=== PATIENT | male | born 1965 | race Caucasian/White ===

== ENCOUNTER 2021-04-13 00:11 | Emergency (ER) | payer SELFPAY ==
[~2021-04-13] VITALS: Ht 170.2 cm; Wt 66.0 kg
[~2021-04-13 00:11] MED LIST: IBUP-2028 PO
[2021-04-13] MEDS ORDERED: ONDANSETRON 4MG ODT PO ONE (06:45)
[2021-04-13] MEDS ORDERED: HYDROCODONE/ACETAMINOPHEN 5/325MG TABLET PO ONE (06:45)
[2021-04-13] MEDS ORDERED: IBUP-2029 MT (10:20)
[2021-04-13 10:32] VITALS: BP 138/82
== END 2021-04-13 10:47 | disposition home or self-care (01) ==
LOC: ER 00:11
DX: S09.90XA Unspecified injury of head, initial encounter (principal); F10.129 Alcohol abuse with intoxication, unspecified; W18.30XA Fall on same level, unspecified, initial encounter; Y93.89 Activity, other specified; Y92.89 Other specified places as the place of occurrence of the external cause; Y99.8 Other external cause status; Y90.9 Presence of alcohol in blood, level not specified
CPT/HCPCS: 70450; 72192; 73502; 73552; 73700; 99285; Q0162

== ENCOUNTER 2022-07-09 09:29 | Emergency (ER) | payer MEDICAID ==
[~2022-07-09] VITALS: Ht 167.6 cm; Wt 74.0 kg
[~2022-07-09 09:29] MED LIST changes: +IBUP-2029 MT
[2022-07-09 09:42] VITALS: BP 141/123
[2022-07-09] MEDS ORDERED: IBUPROFEN 600MG TABLET PO ONE (11:30)
== END 2022-07-09 16:28 | disposition home or self-care (01) ==
LOC: EDBD 09:35 → ER 09:35
DX: S82.402A Unspecified fracture of shaft of left fibula, initial encounter for closed fracture (principal); W18.40XA Slipping, tripping and stumbling without falling, unspecified, initial encounter; Y93.01 Activity, walking, marching and hiking; Y92.89 Other specified places as the place of occurrence of the external cause; Y99.8 Other external cause status
CPT/HCPCS: 73560; 73610; 99284

== ENCOUNTER 2022-07-17 22:41 | Emergency (ER) | payer MEDICAID ==
[~2022-07-17] VITALS: Ht 170.2 cm; Wt 59.0 kg
[2022-07-17 22:47] VITALS: BP 137/86
[2022-07-17] MEDS ORDERED: IBUPROFEN 600MG TABLET PO ONE (23:00)
== END 2022-07-18 07:25 | disposition home or self-care (01) ==
LOC: ER 22:45
DX: S82.492A Other fracture of shaft of left fibula, initial encounter for closed fracture (principal); W01.0XXA Fall on same level from slipping, tripping and stumbling without subsequent striking against object, initial encounter; Y93.89 Activity, other specified; Y92.488 Other paved roadways as the place of occurrence of the external cause
CPT/HCPCS: 29505; 73560; 73590; 73610; 73630; 73700; 99284

== ENCOUNTER 2022-08-20 16:17 | Emergency (ER) | payer MEDICAID ==
[~2022-08-20] VITALS: Ht 165.1 cm; Wt 70.0 kg
[2022-08-20 16:19] VITALS: BP 131/77
[2022-08-20] MEDS: IBUPROFEN 600MG TABLET PO ONE (22:18)
[2022-08-20] MEDS ORDERED: IBUP-2029 MT (22:19)
== END 2022-08-20 23:23 | disposition home or self-care (01) ==
LOC: ER 16:17
DX: S93.402A Sprain of unspecified ligament of left ankle, initial encounter (principal); W01.0XXA Fall on same level from slipping, tripping and stumbling without subsequent striking against object, initial encounter; Y93.89 Activity, other specified; Y92.89 Other specified places as the place of occurrence of the external cause; Y99.8 Other external cause status
CPT/HCPCS: 73562; 73610; 99284

== ENCOUNTER 2025-07-04 14:37 | Inpatient (IN) | payer MEDICAID ==
[~2025-07-04] VITALS: Ht 165.1 cm; Wt 78.0 kg
[~2025-07-04 14:37] MED LIST changes: +CHLO25CA10 PO; +FOLI-43 MT; -IBUP-2028 PO; -IBUP-2029 MT; +MULT-1146 MT; +THIA50TA12 MT
[2025-07-04 14:45] VITALS: O2SAT 98
[2025-07-04] MEDS: PANTOPRAZOLE 80 MG in SODIUM CHLORIDE 0.9% 100 ML IV ONE (15:56)
[2025-07-04] MEDS: SODIUM CHLORIDE 0.9% 1,000 ML IV ONE (15:56)
[2025-07-04] MEDS: CEFTRIAXONE 1GM/50ML 50 ML IV ONE (15:56)
[2025-07-04] MEDS: METOCLOPRAMIDE HCL 10MG/2ML VIAL IV ONE (15:56)
[2025-07-04 16:00] LABS: BASOPHILS % 0.6 % (0.0-2.0); EOSINOPHILS % 0.1 % (0.0-5.0); HEMATOCRIT. 35.2 % (42.0-52.0); HEMOGLOBIN. 11.7 g/dL (14.0-18.0); LYMPHOCYTES % 8.4 % (20.0-50.0); MEAN PLATELET VOLUME 9.2 fl (7.4-10.4); MONOCYTES % 11.1 % (2.0-8.0); NEUTROPHILS % 79.8 % (40.0-76.0); PLATELET 67 x1000/uL (130-400); RED BLOOD CELL COUNT 3.37 mill/uL (4.7-6.1); RED CELL DISTRIBUTION WIDTH 14.9 % (11.6-14.6)
[2025-07-04 16:13] LABS: INR 1.3
[2025-07-04 16:16] LABS: CREATININE 0.4 mg/dL (0.6-1.3)
[2025-07-04 16:17] LABS: TROPONIN I HIGH SENSITIVITY 4 ng/L (3.0-53); UREA NITROGEN BLOOD 10 mg/dL (9-23)
[2025-07-04 16:18] LABS: ASPARTATE AMINOTRANSFERASE 228 IU/L (<34)
[2025-07-04 16:19] LABS: BILIRUBIN DIRECT 2.4 mg/dL (<=3.0); BILIRUBIN TOTAL 3.5 mg/dL (0.1-1.0); PROTEIN TOTAL 7.2 g/dL (6.0-8.3)
[2025-07-04] MEDS ORDERED: DOCUSATE SODIUM 100MG CAPSULE PO PRN (20:00)
[2025-07-04] MEDS ORDERED: PHENOBARBITAL 60MG TABLET PO PRN (20:00)
[2025-07-04] MEDS ORDERED: IPRATROPIUM/ALBUTEROL 0.5-3(2.5)MG/3ML NEB HHN PRN (20:00)
[2025-07-04] MEDS ORDERED: CLONIDINE 0.1MG TABLET PO PRN (20:00)
[2025-07-04] MEDS ORDERED: MAGNESIUM/ALUMINUM HYDROXIDE/SIMETHICONE 30ML UDC PO PRN (20:00)
[2025-07-04] MEDS ORDERED: PHENOBARBITAL 30 MG TABLET PO PRN ×2 (20:00)
[2025-07-04] MEDS ORDERED: CHLORDIAZEPOXIDE 25MG CAPSULE PO PRN (20:00)
[2025-07-04] MEDS ORDERED: LORAZEPAM 1MG TABLET PO PRN ×2 (20:00)
[2025-07-04] MEDS: PANTOPRAZOLE SODIUM 40 MG/VIAL IV SCH (21:00)
[2025-07-04 21:30] VITALS: BP 142/72; PULSE 86; RESP 18; TEMP 36.5292
[2025-07-05] VITALS: BP 148/84; PULSE 86; RESP 20; TEMP 36.4; O2SAT 100
[2025-07-05] MEDS: CHLORDIAZEPOXIDE 25MG CAPSULE PO PRN ×2 (03:34→21:29)
[2025-07-05] MEDS: ONDANSETRON HCL 4MG/2ML INJ IV PRN (03:35)
[2025-07-05 03:54] LABS: CLARITY URINE CLOUDY (CLEAR); COLOR URINE ORANGE (YELLOW); GLUCOSE URINE NEGATIVE (NEGATIVE); KETONES URINE TRACE (NEGATIVE); LEUKOCYTE ESTERASE URINE 1+ (NEGATIVE); NITRITE URINE POSITIVE (NEGATIVE); OCCULT BLOOD URINE NEGATIVE (NEGATIVE); PH URINE 6.0 (4.5-8.0); PROTEIN URINE 1+ (NEGATIVE); SPECIFIC GRAVITY URINE 1.029 (1.005-1.030); UROBILINOGEN URINE 1.0 E.U./dL (0.2-1.0)
[2025-07-05 04:00] VITALS: BP 114/78; PULSE 84; RESP 18; TEMP 36.3; O2SAT 98
[2025-07-05 04:26] LABS: *AMPHETAMINES SCREEN URINE NEGATIVE (NEGATIVE)
[2025-07-05 04:27] LABS: *BARBITURATES SCREEN URINE NEGATIVE (NEGATIVE); *BENZODIAZEPINES SCREEN URINE NEGATIVE (NEGATIVE); *COCAINE SCREEN URINE NEGATIVE (NEGATIVE); CANNABINOID URINE SCREEN NEGATIVE (NEGATIVE); ECSTASY MDMA SCREEN URINE NEGATIVE (NEGATIVE); METHADONE URINE SCREEN NEGATIVE (NEGATIVE); OPIATES URINE SCREEN NEGATIVE (NEGATIVE); PHENCYCLIDINE URINE SCREEN NEGATIVE (NEGATIVE)
[2025-07-05 06:34] LABS: BASOPHILS % 1.0 % (0.0-2.0); EOSINOPHILS % 0.4 % (0.0-5.0); HEMATOCRIT. 31.3 % (42.0-52.0); HEMOGLOBIN. 10.8 g/dL (14.0-18.0); LYMPHOCYTES % 12.3 % (20.0-50.0); MEAN PLATELET VOLUME 9.3 fl (7.4-10.4); MONOCYTES % 11.8 % (2.0-8.0); NEUTROPHILS % 74.5 % (40.0-76.0); PLATELET 56 x1000/uL (130-400); RED BLOOD CELL COUNT 3.02 mill/uL (4.7-6.1); RED CELL DISTRIBUTION WIDTH 14.8 % (11.6-14.6)
[2025-07-05 06:41] LABS: WBC URINE 0-2 /hpf (0-2)
[2025-07-05 06:43] LABS: TROPONIN I HIGH SENSITIVITY 6 ng/L (3.0-53)
[2025-07-05 06:43] LABS: RBC URINE 0-2 /hpf (0-2); SQUAMOUS EPITHELIAL CELL URINE NONE SEEN /lpf (RARE/1+)
[2025-07-05 06:44] LABS: BACTERIA URINE TRACE
[2025-07-05 06:49] LABS: UREA NITROGEN BLOOD 13 mg/dL (9-23)
[2025-07-05 06:50] LABS: CREATININE 0.4 mg/dL (0.6-1.3)
[2025-07-05 06:52] LABS: ASPARTATE AMINOTRANSFERASE 200 IU/L (<34); BILIRUBIN DIRECT 2.0 mg/dL (<=3.0); PHOSPHORUS 2.2 mg/dL (2.5-4.9)
[2025-07-05 06:53] LABS: BILIRUBIN TOTAL 2.9 mg/dL (0.1-1.0); PROTEIN TOTAL 6.3 g/dL (6.0-8.3)
[2025-07-05 07:22] VITALS: BP 142/82; PULSE 88; RESP 18; TEMP 36.3; O2SAT 96
[2025-07-05] MEDS: THIAMINE HCL 100MG TABLET PO SCH (08:30)
[2025-07-05] MEDS: MULTIVITAMINS,THER W-MINERALS TABLET PO SCH (08:31)
[2025-07-05] MEDS: FOLIC ACID 1MG TABLET PO SCH (08:31)
[2025-07-05] MEDS: HYDROCODONE/ACETAMINOPHEN 5/325MG TABLET PO PRN (08:32)
[2025-07-05 12:00] VITALS: BP 136/72; PULSE 81; RESP 18; TEMP 36.4; O2SAT 97
[2025-07-05] MEDS: LACTULOSE 20G/30ML UDC PO SCH (13:26)
[2025-07-05] MEDS ORDERED: CEFTRIAXONE 1GM/50ML 50 ML IV SCH (16:00)
[2025-07-05] MEDS: CEFTRIAXONE 1GM/50ML 50 ML IV SCH (16:02)
[2025-07-05 16:24] VITALS: BP 132/90; PULSE 91; RESP 18; TEMP 36.4; O2SAT 95
[2025-07-05] MEDS: MAGNESIUM 4 G PREMIX 100 ML IV SCH (17:06)
[2025-07-05] MEDS: POTASSIUM PHOSPHATE 15 MMOL in DEXT 5% WATER 245 ML IV SCH (17:43)
[2025-07-05 20:00] VITALS: BP 139/86; PULSE 85; RESP 20; TEMP 36.4; O2SAT 97
[2025-07-06] VITALS: BP 134/88; PULSE 83; RESP 18; TEMP 36.6; O2SAT 96
[2025-07-06 03:49] VITALS: BP 136/81; PULSE 87; RESP 20; TEMP 36.4; O2SAT 98
[2025-07-06 06:46] LABS: CREATININE 0.5 mg/dL (0.6-1.3); UREA NITROGEN BLOOD 9 mg/dL (9-23)
[2025-07-06 06:48] LABS: ASPARTATE AMINOTRANSFERASE 190 IU/L (<34); BILIRUBIN DIRECT 2.9 mg/dL (<=3.0); BILIRUBIN TOTAL 4.2 mg/dL (0.1-1.0); PHOSPHORUS 1.8 mg/dL (2.5-4.9); PROTEIN TOTAL 6.1 g/dL (6.0-8.3)
[2025-07-06 07:14] LABS: BASOPHILS % 1.3 % (0.0-2.0); EOSINOPHILS % 2.2 % (0.0-5.0); HEMATOCRIT. 32.5 % (42.0-52.0); HEMOGLOBIN. 11.2 g/dL (14.0-18.0); LYMPHOCYTES % 14.1 % (20.0-50.0); MEAN PLATELET VOLUME 9.8 fl (7.4-10.4); MONOCYTES % 10.1 % (2.0-8.0); NEUTROPHILS % 72.3 % (40.0-76.0); PLATELET 51 x1000/uL (130-400); RED BLOOD CELL COUNT 3.15 mill/uL (4.7-6.1); RED CELL DISTRIBUTION WIDTH 14.6 % (11.6-14.6)
[2025-07-06 08:00] VITALS: BP 138/98; PULSE 85; RESP 18; TEMP 35.6; O2SAT 96
[2025-07-06] MEDS ORDERED: LORAZEPAM 0.5MG TABLET PO PRN (08:15)
[2025-07-06] MEDS: CHLORDIAZEPOXIDE 25MG CAPSULE PO SCH (08:28)
[2025-07-06 09:13] LABS: FOLIC ACID (FOLATE) SERUM > 20.00 ng/mL (>5.38)
[2025-07-06 09:24] LABS: VITAMIN B12 SERUM > 2000 pg/mL (211-911)
[2025-07-06] MEDS: POTASSIUM CHLORIDE 20MEQ TABLET SR PO PRN (10:43)
[2025-07-06 12:00] VITALS: BP 130/88; PULSE 84; RESP 18; TEMP 36.6; O2SAT 97
[2025-07-06] MEDS: MAGNESIUM 4 G PREMIX 100 ML IV SCH (14:31)
[2025-07-06] MEDS: POTASSIUM PHOSPHATE 20 MMOL in DEXT 5% WATER 243.3333 ML IV SCH (14:32)
[2025-07-06 15:56] VITALS: BP 144/83; PULSE 107; RESP 20; TEMP 37.4; O2SAT 94
[2025-07-06] MEDS: LACTULOSE 20G/30ML UDC PO SCH (16:20)
[2025-07-06 20:00] VITALS: BP 137/74; PULSE 72; RESP 20; TEMP 36.4; O2SAT 99
[2025-07-06 23:28] LABS: BODY FLUID RBC 833 /cu mm (0-2000); BODY FLUID WBC 34 /cu mm (0-200)
[2025-07-06 23:29] LABS: BODY FLUID MONOCYTES 4 %
[2025-07-07] VITALS: BP 112/81; PULSE 75; RESP 18; TEMP 36.4; O2SAT 96
[2025-07-07 04:00] VITALS: BP 127/83; PULSE 96; RESP 20; TEMP 37.1; O2SAT 100
[2025-07-07] MEDS: LORAZEPAM 2MG/ML UD SYRINGE IV PRN (05:33)
[2025-07-07 06:55] LABS: BASOPHILS % 0.5 % (0.0-2.0); EOSINOPHILS % 1.6 % (0.0-5.0); HEMATOCRIT. 36.9 % (42.0-52.0); HEMOGLOBIN. 12.5 g/dL (14.0-18.0); LYMPHOCYTES % 14.4 % (20.0-50.0); MEAN PLATELET VOLUME 10.8 fl (7.4-10.4); MONOCYTES % 7.2 % (2.0-8.0); NEUTROPHILS % 76.3 % (40.0-76.0); PLATELET 55 x1000/uL (130-400); RED BLOOD CELL COUNT 3.52 mill/uL (4.7-6.1); RED CELL DISTRIBUTION WIDTH 14.7 % (11.6-14.6)
[2025-07-07 07:06] LABS: CREATININE 0.4 mg/dL (0.6-1.3); UREA NITROGEN BLOOD < 5 mg/dL (9-23)
[2025-07-07 08:00] VITALS: BP 122/93; PULSE 71; RESP 20; TEMP 35.9; O2SAT 95
[2025-07-07] MEDS: LORAZEPAM 1MG TABLET PO PRN (11:31)
[2025-07-07 11:56] VITALS: BP 126/91; PULSE 71; RESP 18; TEMP 37.1; O2SAT 98
[2025-07-07 14:41] LABS: ASPARTATE AMINOTRANSFERASE 249 IU/L (<34); BILIRUBIN DIRECT 4.3 mg/dL (<=3.0); BILIRUBIN TOTAL 6.3 mg/dL (0.1-1.0); PROTEIN TOTAL 6.7 g/dL (6.0-8.3)
[2025-07-07 15:16] LABS: HEPATITIS A AB IGM NEGATIVE (Negative)
[2025-07-07 15:17] LABS: HEPATITIS B CORE AB IGM NEGATIVE (Negative); HEPATITIS C AB NON REACTIVE (Neg) (Negative)
[2025-07-07 16:00] VITALS: BP 115/88; PULSE 76; RESP 20; TEMP 37; O2SAT 97
[2025-07-07 20:00] VITALS: BP 129/87; PULSE 75; RESP 20; TEMP 36.8; O2SAT 99
[2025-07-08] VITALS: BP 135/80; PULSE 70; RESP 20; TEMP 37.1; O2SAT 98
[2025-07-08 04:00] VITALS: BP 140/87; PULSE 75; RESP 20; TEMP 36.8; O2SAT 98
[2025-07-08 07:20] LABS: BASOPHILS % 0.8 % (0.0-2.0); EOSINOPHILS % 2.9 % (0.0-5.0); HEMATOCRIT. 36.7 % (42.0-52.0); HEMOGLOBIN. 12.5 g/dL (14.0-18.0); LYMPHOCYTES % 15.8 % (20.0-50.0); MEAN PLATELET VOLUME 10.0 fl (7.4-10.4); MONOCYTES % 9.2 % (2.0-8.0); NEUTROPHILS % 71.3 % (40.0-76.0); PLATELET 52 x1000/uL (130-400); RED BLOOD CELL COUNT 3.53 mill/uL (4.7-6.1); RED CELL DISTRIBUTION WIDTH 14.6 % (11.6-14.6)
[2025-07-08 07:41] LABS: CREATININE 0.4 mg/dL (0.6-1.3)
[2025-07-08 07:42] LABS: UREA NITROGEN BLOOD 5 mg/dL (9-23)
[2025-07-08 07:44] LABS: PHOSPHORUS 2.3 mg/dL (2.5-4.9)
[2025-07-08 08:00] VITALS: BP 118/89; PULSE 69; RESP 19; TEMP 36.4; O2SAT 99
[2025-07-08 12:00] VITALS: BP 104/64; PULSE 74; RESP 17; TEMP 36.9; O2SAT 98
[2025-07-08 16:00] VITALS: BP 107/72; PULSE 72; RESP 17; TEMP 36.9; O2SAT 98
[2025-07-08 20:00] VITALS: BP 131/79; PULSE 94; RESP 18; TEMP 36.6; O2SAT 97
[2025-07-09] VITALS: BP 124/79; PULSE 75; RESP 20; TEMP 36.8; O2SAT 96
[2025-07-09 04:00] VITALS: BP 129/69; PULSE 98; RESP 19; TEMP 36.6; O2SAT 97
[2025-07-09 06:33] LABS: BASOPHILS % 0.8 % (0.0-2.0); EOSINOPHILS % 2.7 % (0.0-5.0); HEMATOCRIT. 35.0 % (42.0-52.0); HEMOGLOBIN. 11.9 g/dL (14.0-18.0); LYMPHOCYTES % 18.6 % (20.0-50.0); MEAN PLATELET VOLUME 10.3 fl (7.4-10.4); MONOCYTES % 11.6 % (2.0-8.0); NEUTROPHILS % 66.3 % (40.0-76.0); PLATELET 63 x1000/uL (130-400); RED BLOOD CELL COUNT 3.35 mill/uL (4.7-6.1); RED CELL DISTRIBUTION WIDTH 14.7 % (11.6-14.6)
[2025-07-09 06:45] LABS: CREATININE 0.4 mg/dL (0.6-1.3); UREA NITROGEN BLOOD 6 mg/dL (9-23)
[2025-07-09 06:47] LABS: ASPARTATE AMINOTRANSFERASE 197 IU/L (<34)
[2025-07-09 06:48] LABS: BILIRUBIN TOTAL 5.9 mg/dL (0.1-1.0); PROTEIN TOTAL 6.1 g/dL (6.0-8.3)
[2025-07-09 07:24] LABS: INR 1.4
[2025-07-09 08:00] VITALS: BP 115/82; PULSE 82; RESP 19; TEMP 36.6; O2SAT 97
[2025-07-09 12:00] VITALS: BP 112/68; PULSE 75; RESP 17; TEMP 36.4; O2SAT 98
[2025-07-09 16:00] VITALS: BP 104/75; PULSE 75; RESP 15; TEMP 36.6; O2SAT 96
[2025-07-09] MEDS: SODIUM CHLORIDE 0.45% 1,000 ML IV SCH (17:00)
[2025-07-09 20:00] VITALS: BP 135/90; PULSE 74; RESP 0; RESP 20; TEMP 36.5; O2SAT 100
[2025-07-10] VITALS: BP 112/75; PULSE 71; RESP 20; TEMP 36.9; O2SAT 96
[2025-07-10 04:00] VITALS: BP 110/77; PULSE 72; RESP 20; TEMP 36.8; O2SAT 98
[2025-07-10 06:04] LABS: INR 1.4
[2025-07-10 06:08] LABS: BASOPHILS % 0.5 % (0.0-2.0); EOSINOPHILS % 1.8 % (0.0-5.0); HEMATOCRIT. 35.9 % (42.0-52.0); HEMOGLOBIN. 12.1 g/dL (14.0-18.0); LYMPHOCYTES % 22.6 % (20.0-50.0); MEAN PLATELET VOLUME 10.4 fl (7.4-10.4); MONOCYTES % 11.5 % (2.0-8.0); NEUTROPHILS % 63.6 % (40.0-76.0); PLATELET 65 x1000/uL (130-400); RED BLOOD CELL COUNT 3.43 mill/uL (4.7-6.1); RED CELL DISTRIBUTION WIDTH 15.1 % (11.6-14.6)
[2025-07-10 06:13] LABS: CREATININE 0.3 mg/dL (0.6-1.3)
[2025-07-10 06:14] LABS: UREA NITROGEN BLOOD < 5 mg/dL (9-23)
[2025-07-10 06:15] LABS: ASPARTATE AMINOTRANSFERASE 161 IU/L (<34)
[2025-07-10 06:16] LABS: BILIRUBIN TOTAL 5.8 mg/dL (0.1-1.0); PROTEIN TOTAL 5.7 g/dL (6.0-8.3)
[2025-07-10 08:00] VITALS: BP 126/83; PULSE 74; RESP 20; TEMP 36.4; O2SAT 96
[2025-07-10 12:00] VITALS: BP 122/77; PULSE 71; RESP 20; TEMP 36.9; O2SAT 97
[2025-07-10 16:00] VITALS: BP 124/86; PULSE 88; RESP 20; TEMP 36.3; O2SAT 96
[2025-07-10 20:00] VITALS: BP 122/88; PULSE 76; RESP 18; TEMP 36.3; O2SAT 96
[2025-07-11] VITALS: BP 138/65; PULSE 67; RESP 20; TEMP 36.4; O2SAT 99
[2025-07-11 04:00] VITALS: BP 112/67; PULSE 67; RESP 18; TEMP 36.5; O2SAT 98
[2025-07-11 06:09] LABS: CREATININE 0.3 mg/dL (0.6-1.3); UREA NITROGEN BLOOD 6 mg/dL (9-23)
[2025-07-11 06:11] LABS: ASPARTATE AMINOTRANSFERASE 149 IU/L (<34); BILIRUBIN TOTAL 5.8 mg/dL (0.1-1.0); PROTEIN TOTAL 5.6 g/dL (6.0-8.3)
[2025-07-11 06:17] LABS: BASOPHILS % 0.6 % (0.0-2.0); EOSINOPHILS % 2.0 % (0.0-5.0); HEMATOCRIT. 34.9 % (42.0-52.0); HEMOGLOBIN. 11.7 g/dL (14.0-18.0); LYMPHOCYTES % 15.8 % (20.0-50.0); MEAN PLATELET VOLUME 9.7 fl (7.4-10.4); MONOCYTES % 14.7 % (2.0-8.0); NEUTROPHILS % 66.9 % (40.0-76.0); PLATELET 77 x1000/uL (130-400); RED BLOOD CELL COUNT 3.34 mill/uL (4.7-6.1); RED CELL DISTRIBUTION WIDTH 14.9 % (11.6-14.6)
[2025-07-11 06:50] LABS: INR 1.4
[2025-07-11 08:00] VITALS: BP 132/86; PULSE 86; RESP 18; TEMP 36.6; O2SAT 98
[2025-07-11] MEDS ORDERED: MULT-1146 MT (08:07)
[2025-07-11] MEDS ORDERED: THIA50TA12 MT (08:07)
[2025-07-11] MEDS ORDERED: FOLI-43 MT (08:07)
[2025-07-11] MEDS ORDERED: CHLO25CA10 MT (08:08)
[2025-07-11] MEDS ORDERED: LACT-390 MT (08:08)
[2025-07-11] MEDS: POTASSIUM CHLORIDE 20MEQ TABLET SR PO NR (09:08)
[2025-07-11 12:00] VITALS: BP 128/75; PULSE 81; RESP 20; TEMP 37.2; O2SAT 97
[2025-07-11 16:00] VITALS: BP 110/71; PULSE 70; RESP 18; TEMP 35.6; O2SAT 96
[2025-07-11 20:00] VITALS: BP 135/82; PULSE 82; RESP 18; TEMP 36.2; O2SAT 99
[2025-07-12] VITALS: BP 111/80; PULSE 76; RESP 20; TEMP 36.3; O2SAT 97
[2025-07-12 04:00] VITALS: BP 131/75; PULSE 67; RESP 20; TEMP 36.8; O2SAT 96
[2025-07-12 07:23] LABS: HEMATOCRIT. 36.0 % (42.0-52.0); HEMOGLOBIN. 12.2 g/dL (14.0-18.0); MEAN PLATELET VOLUME 9.8 fl (7.4-10.4); PLATELET 97 x1000/uL (130-400); RED BLOOD CELL COUNT 3.43 mill/uL (4.7-6.1); RED CELL DISTRIBUTION WIDTH 15.3 % (11.6-14.6)
[2025-07-12 07:26] LABS: CREATININE 0.3 mg/dL (0.6-1.3); UREA NITROGEN BLOOD 8 mg/dL (9-23)
[2025-07-12 07:28] LABS: ASPARTATE AMINOTRANSFERASE 157 IU/L (<34); BILIRUBIN TOTAL 5.7 mg/dL (0.1-1.0); PROTEIN TOTAL 5.9 g/dL (6.0-8.3)
[2025-07-12 08:00] VITALS: BP 131/79; PULSE 69; RESP 16; TEMP 36.4; O2SAT 98
[2025-07-12 12:00] VITALS: BP 132/73; PULSE 72; RESP 20; TEMP 36.4; O2SAT 95
[2025-07-12] MEDS: CHLORDIAZEPOXIDE 25MG CAPSULE PO SCH (14:02)
[2025-07-12 16:00] VITALS: BP 131/84; PULSE 64; RESP 20; TEMP 36.5; O2SAT 97
[2025-07-12 20:00] VITALS: BP 130/97; PULSE 84; RESP 16; TEMP 36.4; O2SAT 100
[2025-07-13] VITALS: BP 123/85; PULSE 85; RESP 17; TEMP 36.9; O2SAT 96
[2025-07-13 04:00] VITALS: BP 135/78; PULSE 74; RESP 16; TEMP 36.6; O2SAT 97
[2025-07-13 08:00] VITALS: BP 124/76; PULSE 69; RESP 19; TEMP 36.3; O2SAT 97
[2025-07-13 12:00] VITALS: BP 132/85; PULSE 77; RESP 20; TEMP 36.3; O2SAT 96
[2025-07-13 14:07] LABS: BAND% 6.0 % (1.0-6.0); LYMPHOCYTES % MANUAL 21.0 % (20.0-50.0); MONOCYTES % MANUAL 21.0 % (2.0-8.0); NEUTROPHILS % MANUAL 52.0 % (45.0-75.0); NUCLEATED RED BLOOD CELLS 1 /100 WBC
[2025-07-13 14:08] LABS: PLATELET ESTIMATE DECREASED
[2025-07-13 16:00] VITALS: BP 138/83; PULSE 74; RESP 17; TEMP 36.2; O2SAT 94
[2025-07-13 20:00] VITALS: BP 140/88; PULSE 60; RESP 19; TEMP 36.5; O2SAT 95
[2025-07-13] MEDS: ACETAMINOPHEN 325MG TABLET PO PRN (20:21)
[2025-07-14] VITALS: BP 130/80; PULSE 62; RESP 18; TEMP 36.4; O2SAT 98
[2025-07-14 04:00] VITALS: BP 119/76; PULSE 73; RESP 17; TEMP 36.6; O2SAT 95
[2025-07-14 08:00] VITALS: BP 111/75; PULSE 76; RESP 17; TEMP 36.9; O2SAT 96
[2025-07-14 12:00] VITALS: BP 112/70; PULSE 80; RESP 18; TEMP 36.9; O2SAT 96
[2025-07-14 13:45] LABS: HEMATOCRIT. 35.2 % (42.0-52.0); HEMOGLOBIN. 11.6 g/dL (14.0-18.0); MEAN PLATELET VOLUME 9.5 fl (7.4-10.4); PLATELET 157 x1000/uL (130-400); RED BLOOD CELL COUNT 3.26 mill/uL (4.7-6.1); RED CELL DISTRIBUTION WIDTH 15.5 % (11.6-14.6)
[2025-07-14 13:59] LABS: UREA NITROGEN BLOOD 7 mg/dL (9-23)
[2025-07-14 14:00] LABS: ASPARTATE AMINOTRANSFERASE 151 IU/L (<34); BILIRUBIN TOTAL 6.0 mg/dL (0.1-1.0); PROTEIN TOTAL 6.2 g/dL (6.0-8.3)
[2025-07-14 14:16] LABS: CREATININE 0.4 mg/dL (0.6-1.3)
[2025-07-14 16:00] VITALS: BP 135/74; PULSE 76; RESP 17; TEMP 36.6; O2SAT 95
[2025-07-14 18:13] LABS: EOSINOPHILS % MANUAL 3.0 % (0.0-5.0); LYMPHOCYTES % MANUAL 13.0 % (20.0-50.0); MONOCYTES % MANUAL 10.0 % (2.0-8.0); NEUTROPHILS % MANUAL 74.0 % (45.0-75.0); PLATELET ESTIMATE NORMAL
[2025-07-14 20:00] VITALS: BP 123/84; PULSE 78; RESP 18; TEMP 36.4; O2SAT 97
[2025-07-15] VITALS: BP 125/82; PULSE 71; RESP 20; TEMP 36.4; O2SAT 96
[2025-07-15 04:00] VITALS: BP 118/76; PULSE 78; RESP 18; TEMP 36.5; O2SAT 95
[2025-07-15 08:00] VITALS: BP 134/85; PULSE 87; RESP 16; TEMP 36.8; O2SAT 99
[2025-07-15] MEDS: PANTOPRAZOLE 40MG DR TABLET PO SCH (09:59)
[2025-07-15 12:00] VITALS: BP 134/75; PULSE 74; RESP 17; TEMP 37.1; O2SAT 96
[2025-07-15 16:00] VITALS: BP 113/82; PULSE 69; RESP 17; TEMP 36.7; O2SAT 95
[2025-07-15 16:59] VITALS: BP 113/82; PULSE 69; RESP 17; TEMP 98
[2025-07-16] MEDS ORDERED: CHLORDIAZEPOXIDE 25MG CAPSULE PO SCH (09:00)
[2025-07-16] MEDS ORDERED: PERM59LI8 TP (15:56)
== END 2025-07-15 18:34 | DRG 253 ==
LOC: ER 14:37 → 7WST 16:30 → EDBEDREQ 16:48 → EDBEDREQTM 16:48 → ENRESERV 20:23 → 8EST 07-11 23:00
PROVIDERS: ADMIT Family Medicine Adult Medicine; ATTEND Family Medicine Adult Medicine
PROC: 0W9G30Z Drainage of Peritoneal Cavity with Drainage Device, Percutaneous Approach (ICD-10-PCS; principal; 2025-07-06)
DX: K92.0 Hematemesis (principal); E72.20 Disorder of urea cycle metabolism, unspecified; K70.31 Alcoholic cirrhosis of liver with ascites; D69.6 Thrombocytopenia, unspecified; E83.39 Other disorders of phosphorus metabolism; N39.0 Urinary tract infection, site not specified; D53.9 Nutritional anemia, unspecified; F10.139 Alcohol abuse with withdrawal, unspecified; Z59.00 Homelessness unspecified; K82.8 Other specified diseases of gallbladder; E83.42 Hypomagnesemia; E86.0 Dehydration; F10.129 Alcohol abuse with intoxication, unspecified; F17.200 Nicotine dependence, unspecified, uncomplicated; R25.1 Tremor, unspecified; M79.642 Pain in left hand; Y90.8 Blood alcohol level of 240 mg/100 ml or more; S30.813A Abrasion of scrotum and testes, initial encounter; S70.312A Abrasion, left thigh, initial encounter; S70.311A Abrasion, right thigh, initial encounter; S70.212A Abrasion, left hip, initial encounter; S70.211A Abrasion, right hip, initial encounter; X58.XXXA Exposure to other specified factors, initial encounter; Y93.89 Activity, other specified; Y92.89 Other specified places as the place of occurrence of the external cause; Y99.8 Other external cause status
CPT/HCPCS: 36415; 49083; 71045; 76700; 80048; 80053; 80076; 80305; 80320; 81003; 82040; 82105; 82140; 82607; 82728; 82746; 82977; 83036; 83540; 83550; 83615; 83735; 83880; 84100; 84484; 85025; 86705; 86709; 86850; 86900; 87340; 88108; 88312; 93005; 97110; 97116; 97162; 97166; 97530; 99291; A4606; J0696; J2060; J2405; J2470; J2765; J3475; J3490; J7050; J7060; G0480